=== PATIENT | male | born 1950 | race Caucasian/White ===

== ENCOUNTER 2022-05-23 11:55 | Day surgery (SDC) | payer MEDICARE ==
[~2022-05-23] VITALS: Ht 170.2 cm; Wt 59.1 kg
[~2022-05-23 11:55] MED LIST: ADVAIR 100-501 EACH; ADVAIR 250-501 EACH INH; BUDESONIDE-FO10.2 G1 INH; CYCLOBENZAPRINE10 MG PO; FLOMAX0.4 MG PO; NORVASC5 MG PO; SPIRIVA RESPIMAT4 GM INH; TRELEGY ELLIPT1 EAC1 INH; VENTOLIN HFA18 GM INH
[2022-05-23] MEDS ORDERED: VITAMIN D310 MC1 PO (12:19)
[2022-05-23] MEDS ORDERED: EXCEDRIN EXTRA1 EAC1 PO (12:21)
--- NOTE | 2022-05-23 14:38 | NUR ---
05/23/22 1438 Marlin Parmar 1427- PT ARRIVES TO PACU REACTIVE TO PAINFUL STIMULI. RESP EVEN AND SHALLOW. OXYGEN SAT MID TO HIGH 90'S ON 3L VIA NC. PT IS DIAPHORECTIC. WAS REPORTED THAT THE PT WAS DIAPHORECTIC DURING THE PROCEDURE. 1432- PT SAT UP SLIGHTLY IN BED. PT RESPONDS TO TACTILE STIMULI. PT REPORTS NO PAIN OR NAUSEA. INSTANTLY FALLS BACK TO SLEEP WHEN NOT BEING TALKED TO.
--- NOTE | 2022-05-23 16:52 | NUR ---
PT TRANPSORTED FROM PACU TO DAY SURGERY ROOM 7. REPORT TAKEN FROM MITUL MOHAN. PT RESTING IN BED WITH EYES CLOSED. RESPONDS TO STIMULI. PT HAS CONTINUOUS OXYGEN PROBE ON R-FINGER. PT DENIES PAIN. PT'S OXYGEN DROPS TO 86% WHEN PT FALLS ASLEEP. PT REMINDED TO TAKE DEEP BREATHS. CALL LIGHT WITHIN REACH.
--- NOTE | 2022-05-23 17:09 | NUR ---
1700: PT AT BEDSIDE. 1705: PT'S O2 DROPS TO 87-79% WHEN FALLING ASLEEP. APPLIED 2L OXYGEN VIA NASAL CANNULA. 1712: PT MAINTAINING O2 AT 100-99%.
--- NOTE | 2022-05-23 17:27 | NUR ---
1715: DR LEON CALLED TO UPDATE ON PT STATUS. DR LEON STATES TO LET PT SLEEP A BIT LONGER TO LET THE MEDICATION WEAR OFF AND UPDATE HIM IF IT'S GETTING CLOSE TO 6PM TO SEE IF THE PT NEEDS ADMITTED TO MED SURG. 1725: PT URINATED 300 ML LIGHT YELLOW LIQUID AT BEDSIDE WITH . PT STATES "I FEEL NAUSEOUS BUT I JUST WANT TO GO HOME". PT DENIES JUICE, WATER, AND CRACKERS. PT KEEPS STATING HE JUST WANTS TO GO HOME. OXYGEN TURNED OFF PT IS ALERT AND ORIENTED. PT MAINTAINING OXYGEN AT 100% ON ROOM AIR.
--- NOTE | 2022-05-23 17:37 | NUR ---
PT STATES HE WANTS TO GO HOME. AND THIS RN ATTEMPTED TO PUT PT'S PERSONAL SHIRT ON AND HE STARTED TO WINCE AND DRY HEAVE. PT APPEARS UNCOMFORTABLE AND MOANING WITH A GRIMACE ON HIS FACE. PT EATING CRACKERS. PULSE DROPS TO 30 BPM THEN GOES BACK UO TO 53 BPM.
--- NOTE | 2022-05-23 17:48 | NUR ---
174: PT EATING CRACKERS AT BEDSIDE. PT SIPPING ICE WATER. PT STATES HE IS READY TO GO HOME. PT PUT ON PERSONAL CLOTHING WITH ASSITANCE FROM AND THIS RN. PT DENIES NAUSEA OR DIZZINESS. IV DC WNL, TIP INTACT. DISCHARGE INSTRUCTIONS REVIEWED WITH PT AND . NO QUESTIONS OR CONCERNS. PT STATES HE FEELS READY TO BE DISCHARGED HOME. 1754: PT DISCHARGED VIA WHEELCHAIR TO PERSONAL AUTOMOBILE TO .
--- NOTE | 2022-05-24 15:08 | PATH ---
[facility] [address] [place], [place] [address] Signed SPECIMEN(S): A RECTAL POLYP SPECIMEN(S): B SIGMOID POLYP AT 30CM SPECIMEN(S): C SIGMOID POLYP AT 30CM DIVERTICULA SPECIMEN SOURCE: A. RECTAL POLYP B. SIGMOID POLYP AT 30CM C. SIGMOID POLYP AT 30CM DIVERTICULA CLINICAL HISTORY: +Cologaurd, hx of polyps, hx of rectal bleeding. Postop: Diverticulosis, polyps x3. FINAL PATHOLOGIC DIAGNOSIS: A. Rectal polyp: - Hyperplastic polyp (two fragments). B. Sigmoid polyp at 30 cm: - Tubular adenoma. C. Sigmoid polyp at 30 cm diverticula: - Hyperplastic polyp (two fragments). JVR:[id number] MICROSCOPIC EXAMINATION: Histologic sections of all submitted blocks are examined by light microscopy. These findings, together with the gross examination, support the pathologic diagnosis. GROSS DESCRIPTION: A. The specimen, labeled and designated "Randall, rectal polyp," is received in formalin and consists of two del toro soft tissue fragments, ranging from 0.1-0.2 cm. Entirely submitted in (A1). B. The specimen, labeled and designated "Randall, sigmoid polyp at 30 cm," is received in formalin and consists of one del toro soft tissue fragment, 0.9 cm. Entirely submitted in (B1). C. The specimen, labeled and designated "Randall, sigmoid polyp at 30 cm diverticula," is received in formalin and consists of two del toro soft tissue fragments, ranging from 0.2-0.3 cm. Entirely submitted in (C1). VB (under the direct supervision of a pathologist) The Gross Description was prepared using a voice recognition system. The report was reviewed for accuracy; however, sound-alike word errors, addition and/or PATIENT NAME: ADELITA RANDALL PATHOLOGY DATE OF : 54 REPORT #: [id number] PHYSICIAN: CATALINA DAWSON PCP: ARIE ROBLES MD REPORT IS CONFIDENTIAL AND NOT TO BE RELEASED WITHOUT AUTHORIZATION [facility] [address] [place] [place] [address] Signed deletions may occur. If there is any question about this report, please contact Client Services. PERFORMING LABORATORY: The technical component was performed by [facility] [employer], [address] [place] [address] (CLIA# [id number]). Professional interpretation was performed by [facility] - [facility], [address] [place] [id number] (CLIA#: [id number]). Diagnostician: Gerber Medina MD Pathologist Electronically Signed 05/24/2022 Copies: ~ PATIENT NAME: ADELITA RANDALL PATHOLOGY DATE OF : 54 REPORT #: [id number] PHYSICIAN: CATALINA DAWSON PCP: ARIE ROBLES MD REPORT IS CONFIDENTIAL AND NOT TO BE RELEASED WITHOUT AUTHORIZATION
--- NOTE | 2022-05-24 19:29 | EKG ---
[facility] [address] [place] [address] Signed Sinus rhythm with marked sinus arrhythmia Otherwise normal ECG No previous ECGs available Confirmed by Deejay Hare MD () on 05/24/2022 7:28:53 PM Electronically Signed By: DEEJAY HARE MD 05/24/221928 PATIENT NAME: ADELITA RANDALL Electrocardiogram DATE OF : 54 PHYSICIAN: DEEJAY HARE MD REPORT #: [id number] REPORT IS CONFIDENTIAL AND NOT TO BE RELEASED WITHOUT AUTHORIZATION
--- NOTE | 2022-05-25 10:37 | OR ---
[facility] [address] [place], [place] [address] Signed DATE OF OPERATION: 05/23/2022 SURGEON: Adelita Leon MD PREOPERATIVE DIAGNOSIS: Positive Cologuard test December 22, 2021. POSTOPERATIVE DIAGNOSES: 1. Polyps x3. 2. Diverticulosis. PROCEDURE: Total colonoscopy to cecum with cold snare polypectomy x2, cold morcellation polypectomy x1. ANESTHESIA: Intravenous sedation, fentanyl 150 mcg and Versed 7 mg. INDICATION: This 71-year-old white man is a patient of Dr. Arie Robles and was found to have a positive Cologuard test December 22, 2021. He has no symptoms of bleeding, diarrhea or constipation and no family history of colon cancer. He is admitted to undergo colonoscopy on the basis of his positive Cologuard test. He understands the risk of bleeding, infection, and perforation. FINDINGS: The prep was good. Complete colonoscopy was undertaken to the cecum without question. He was rather restless during the course of his colonoscopy, though not particularly painful per se. In the future, a propofol infusional approach may be a more appropriate. In any case, he did have diverticular changes of the sigmoid and left colon as well as 3 relatively small polyps, all excised completely. DESCRIPTION OF PROCEDURE: The patient was brought to the endoscopy suite and placed in lateral decubitus position, given intravenous sedation points slurred speech and nystagmus. Digital rectal examination was normal. An Olympus video colonoscope was passed in the rectum and manipulated throughout the colon. He was a bit restless during the course of the procedure, requiring additional sedation. Diverticular changes were seen in the sigmoid Electronically Signed By: ADELITA LEON MD 05/25/22 [facility] PATIENT NAME: ADELITA RANDALL OPERATIVE REPORT DATE OF : 54 REPORT #: [id number] PHYSICIAN: ADELITA LEON MD PCP: ARIE ROBLES MD REPORT IS CONFIDENTIAL AND NOT TO BE RELEASED WITHOUT AUTHORIZATION [facility] [address], [place] [address] Signed and left colon. Scope was ultimately advanced to the cecum. The ileocecal valve and appendiceal orifice were normal. The scope was withdrawn from that point. Examination throughout showed only diverticular changes of the left colon until approximately 25 cm from the anal verge, where 2 small polyps were noted. Both were excised, one with cold snare technique, the other with cold morcellation technique. Further withdrawal showed another small polyp of the rectum excised with cold snare technique as well. Retroflexed view was otherwise normal. The scope was removed. The patient was taken to the recovery room in good condition. CONCLUDING DIAGNOSES: 1. Polyps x3. 2. Diverticulosis. 3. External hemorrhoidal changes. He will return to the ongoing care of Dr. Robles. He is recommended to have colonoscopy again in 5 years, sooner if clinically indicated. A propofol infusional technique would be most appropriate at that point. MD ANA Pascual/DAGO /[id number] cc: Arie Robles MD Copies: ARIE ROBLES DMD ~ Electronically Signed By: ADELITA LEON MD 05/25/22 1037 PATIENT NAME: ADELITA RANDALL OPERATIVE REPORT DATE OF : 54 REPORT #: [id number] PHYSICIAN: ADELITA LEON MD PCP: ARIE ROBLES MD REPORT IS CONFIDENTIAL AND NOT TO BE RELEASED WITHOUT AUTHORIZATION
== END 2022-05-23 17:53 | disposition home or self-care (01) ==
LOC: DS 11:55 → OPS 11:55 → DS 13:00 → OPS 17:53
PROVIDERS: ATTEND Surgery
PROC: 0DBP8ZZ Excision of Rectum, Via Natural or Artificial Opening Endoscopic (ICD-10-PCS; 2022-05-23)
PROC: 0DBN8ZZ Excision of Sigmoid Colon, Via Natural or Artificial Opening Endoscopic (ICD-10-PCS; principal; 2022-05-23 13:00)
DX: D12.5 Benign neoplasm of sigmoid colon (principal); R19.5 Other fecal abnormalities; K57.30 Diverticulosis of large intestine without perforation or abscess without bleeding; Z87.19 Personal history of other diseases of the digestive system; Z86.19 Personal history of other infectious and parasitic diseases; I10 Essential (primary) hypertension; N40.1 Benign prostatic hyperplasia with lower urinary tract symptoms; N13.8 Other obstructive and reflux uropathy; J44.9 Chronic obstructive pulmonary disease, unspecified; K62.1 Rectal polyp
CPT/HCPCS: 36415; 80053; 84484; 85025; 93005; 93010; 99153; G0500; J2250; J2405; J3010; J7121

== ENCOUNTER 2022-08-24 06:50 | Emergency (ER) | payer MEDICARE ==
[~2022-08-24] VITALS: Ht 170.2 cm; Wt 60.0 kg
[~2022-08-24 06:50] MED LIST changes: +EXCEDRIN EXTRA1 EAC1 PO; +VITAMIN D310 MC1 PO
[2022-08-24] MEDS ORDERED: PROPARACAINE HC15 ML OTIC (07:38)
[2022-08-24] MEDS ORDERED: CIPROFLOX-DEXA7.5 ML AD (07:38)
[2022-08-24 07:57] VITALS: BP 154/91
== END 2022-08-24 07:57 | disposition home or self-care (01) ==
LOC: ED 06:50
DX: H60.91 Unspecified otitis externa, right ear (principal); H61.22 Impacted cerumen, left ear; I10 Essential (primary) hypertension; J44.9 Chronic obstructive pulmonary disease, unspecified; Z79.51 Long term (current) use of inhaled steroids; Z79.899 Other long term (current) drug therapy
CPT/HCPCS: 99282